=== PATIENT | male | born 1960 | race Asian ===

== ENCOUNTER 2020-08-26 14:10 | Emergency (ER) | payer OTHER ==
[~2020-08-26] VITALS: Ht 165.1 cm; Wt 69.0 kg
[2020-08-26 14:15] VITALS: BP 149/92
[2020-08-26] MEDS ORDERED: AMLODIPINE 10MG TABLET PO ONE (14:45)
[2020-08-26 15:15] LABS: BASOPHILS % 0.9 % (0.0-2.0); EOSINOPHILS % 1.1 % (0.0-5.0); HEMATOCRIT. 40.7 % (42.0-52.0); HEMOGLOBIN. 13.2 g/dL (14.0-18.0); LYMPHOCYTES % 15.6 % (20.0-50.0); MEAN CORPUSCULAR HEMOGLOBIN 22.5 pg (28.0-32.0); MEAN CORPUSCULAR VOLUME 69.5 fL (80.0-94.0); MEAN PLATELET VOLUME 7.4 fl (7.4-10.4); MONOCYTES % 6.2 % (2.0-8.0); NEUTROPHILS % 76.2 % (40.0-76.0); PLATELET 212 x1000/uL (130-400); RED BLOOD CELL COUNT 5.87 mill/uL (4.7-6.1); RED CELL DISTRIBUTION WIDTH 14.8 % (11.6-14.6)
[2020-08-26 15:22] LABS: CHLORIDE 108 mEq/L (98-107)
[2020-08-26 15:40] LABS: PLATELET ESTIMATE NORMAL
== END 2020-08-26 17:37 | disposition home or self-care (01) ==
LOC: ER 14:10
DX: R53.1 Weakness (principal); I10 Essential (primary) hypertension; Z98.890 Other specified postprocedural states
CPT/HCPCS: 36415; 80053; 85025; 99283; 99284